=== PATIENT | female | born 1985 | race Caucasian/White ===

== ENCOUNTER 2018-06-08 08:00 | Outpatient (CLI) | payer MEDICAID ==
[2018-06-08 18:58] LABS: BASOPHILS % (AUTO) 0.5 %; EOSINOPHILS # (AUTO) 0.2 10^3/uL (0.0-0.7); EOSINOPHILS % (AUTO) 2.3 %; HGB - HEMOGLOBIN 14.8 g/dL (12.0-16.0); LYMPHOCYTES # (AUTO) 2.3 10^3/uL (1.5-3.5); LYMPHOCYTES % (AUTO) 31.8 %; MEAN CORPUSCULAR HEMOGLOBIN 33.7 pg (27.0-31.0); MEAN CORPUSCULAR HGB CONC 35.4 g/dL (32.0-36.0); MEAN CORPUSCULAR VOLUME 95.2 fL (81.0-99.0); MEAN PLATELET VOLUME 7.5 fL (7.9-10.8); MONOCYTES # (AUTO) 0.4 10^3/uL (0.0-1.0); MONOCYTES % (AUTO) 5.7 %; NEUTROPHILS # (AUTO) 4.4 10^3/uL (1.5-6.6); NEUTROPHILS % (AUTO) 59.7 %; PLT - PLATELET COUNT 216 10^3/uL (130-450); RED BLOOD COUNT 4.39 10^6/uL (4.20-5.40); WHITE BLOOD COUNT 7.3 x10^3/uL (4.8-10.8)
[2018-06-08 19:09] LABS: ALBUMIN 4.1 g/dL (3.2-5.5); ALBUMIN/GLOBULIN RATIO 1.5 (1.0-2.2); BILIRUBIN,TOTAL 0.6 mg/dL (0.2-1.0); CALCIUM 9.1 mg/dL (8.5-10.3); CREATININE 0.6 mg/dL (0.4-1.0); TOTAL PROTEIN 6.9 g/dL (6.7-8.2)
[2018-06-09 08:37] LABS: HEPATITIS B SURFACE ANTIGEN NON-REACTIVE (NON-REACTIVE)
[2018-06-09 11:37] LABS: HIV AG/AB 4TH GEN NON-REACTIVE (NON-REACTIVE)
[2018-06-09 13:12] LABS: HEPATITIS C ANTIBODY NON-REACTIVE (NON-REACTIVE)
== END 2018-06-08 08:01 ==
LOC: LAB.N 08:00
PROVIDERS: ATTEND Physician Assistant Medical
DX: Z00.00 Encounter for general adult medical examination without abnormal findings (principal); F31.9 Bipolar disorder, unspecified; Z72.0 Tobacco use; G47.00 Insomnia, unspecified; F15.21 Other stimulant dependence, in remission; F41.8 Other specified anxiety disorders
CPT/HCPCS: 36415; 80053; 81599; 84443; 85025; 86317; 86704; 86803; 87340; 87389

== ENCOUNTER 2018-07-29 13:14 | Outpatient (CLI) | payer MEDICAID ==
[2018-07-29 19:30] LABS: BASOPHILS # (AUTO) 0.1 10^3/uL (0.0-0.1); BASOPHILS % (AUTO) 0.7 %; EOSINOPHILS # (AUTO) 0.1 10^3/uL (0.0-0.7); EOSINOPHILS % (AUTO) 1.4 %; HGB - HEMOGLOBIN 14.7 g/dL (12.0-16.0); LYMPHOCYTES # (AUTO) 2.1 10^3/uL (1.5-3.5); LYMPHOCYTES % (AUTO) 28.4 %; MEAN CORPUSCULAR HEMOGLOBIN 33.1 pg (27.0-31.0); MEAN CORPUSCULAR HGB CONC 34.6 g/dL (32.0-36.0); MEAN CORPUSCULAR VOLUME 95.7 fL (81.0-99.0); MEAN PLATELET VOLUME 7.6 fL (7.9-10.8); MONOCYTES # (AUTO) 0.4 10^3/uL (0.0-1.0); MONOCYTES % (AUTO) 5.2 %; NEUTROPHILS # (AUTO) 4.7 10^3/uL (1.5-6.6); NEUTROPHILS % (AUTO) 64.3 %; PLT - PLATELET COUNT 204 10^3/uL (130-450); RED BLOOD COUNT 4.43 10^6/uL (4.20-5.40); RED CELL DISTRIBUTION WIDTH 12.4 % (12.0-15.0); WHITE BLOOD COUNT 7.3 x10^3/uL (4.8-10.8)
[2018-07-29 19:31] LABS: CALCIUM 8.9 mg/dL (8.5-10.3); CREATININE 0.9 mg/dL (0.4-1.0)
== END 2018-07-29 13:15 | disposition home or self-care (01) ==
LOC: LAB.N 13:14
PROVIDERS: ATTEND Physician Assistant Medical
DX: F31.9 Bipolar disorder, unspecified (principal); F41.8 Other specified anxiety disorders; Z32.00 Encounter for pregnancy test, result unknown; Z09 Encounter for follow-up examination after completed treatment for conditions other than malignant neoplasm
CPT/HCPCS: 36415; 80048; 84702; 84703; 85025

== ENCOUNTER 2019-04-29 08:00 | Outpatient (CLI) | payer MEDICAID ==
[2019-04-29 17:49] LABS: MUDS CUTOFF CONCENTRATIONS CUTOFF CONC BELOW:
[2019-04-29 18:34] LABS: BILIRUBIN,URINE NEGATIVE (NEGATIVE); GLUCOSE, URINE (UA) NEGATIVE (NEGATIVE); KETONES,URINE (UA) NEGATIVE (NEGATIVE); LEUKOCYTE ESTERASE, URINE NEGATIVE (NEGATIVE); NITRITE,URINE NEGATIVE (NEGATIVE); OCCULT BLOOD,URINE NEGATIVE (NEGATIVE); PH,URINE 6.5 PH (5.0-7.5); PROTEIN,URINE NEGATIVE (NEGATIVE); UROBILINOGEN,URINE 1 (NORMAL) E.U./dL (NORMAL)
[2019-04-29 18:52] LABS: BACTERIA,URINE None Seen /HPF (None Seen); CLARITY,URINE CLEAR (CLEAR); RBC,URINE 0-5 /HPF (0-5); SQUAMOUS EPITHELIAL CELL,UR FEW Squamous (<= Few)
[2019-04-29 19:39] LABS: AMPHETAMINE SCREEN,URINE NEGATIVE (NEGATIVE); BENZODIAZEPINES SCREEN, URINE NEGATIVE (NEGATIVE); COCAINE SCREEN URINE NEGATIVE (NEGATIVE); METHADONE SCREEN, URINE NEGATIVE (NEGATIVE); METHAMPHETAMINES SCREEN, URINE NEGATIVE (NEGATIVE); OPIATE SCREEN, URINE NEGATIVE (NEGATIVE); OXYCODONE SCREEN, URINE NEGATIVE (NEGATIVE); PROPOXYPHENE SCREEN, URINE NEGATIVE (NEGATIVE); TRICYCLIC ANTIDEPRESSANT,URINE NEGATIVE (NEGATIVE)
[2019-04-29 22:46] LABS: TRICHOMONAS VAGINALIS DNA NEGATIVE (NEGATIVE)
== END 2019-04-29 23:59 | disposition home or self-care (01) ==
LOC: LAB.R 08:00
PROVIDERS: ATTEND Obstetrics & Gynecology
DX: O09.73 Supervision of high risk pregnancy due to social problems, third trimester (principal); Z36.89 Encounter for other specified antenatal screening; F31.9 Bipolar disorder, unspecified; F15.10 Other stimulant abuse, uncomplicated; Z72.0 Tobacco use
CPT/HCPCS: 80306; 81001; 87086; 87491; 87591; 87661; 87797

== ENCOUNTER 2019-04-29 15:58 | Outpatient (CLI) | payer MEDICAID ==
[2019-04-29 17:48] LABS: ALBUMIN 2.3 g/dL (3.2-5.5); ALBUMIN/GLOBULIN RATIO 0.5 (1.0-2.2); BILIRUBIN,TOTAL 0.4 mg/dL (0.2-1.0); CALCIUM 8.6 mg/dL (8.5-10.3); CREATININE 0.7 mg/dL (0.4-1.0); TOTAL PROTEIN 7.1 g/dL (6.7-8.2)
[2019-04-29 17:51] LABS: BASOPHILS % (AUTO) 0.2 %; EOSINOPHILS % (AUTO) 0.2 %; HGB - HEMOGLOBIN 10.1 g/dL (12.0-16.0); LYMPHOCYTES # (AUTO) 2.2 10^3/uL (1.5-3.5); MEAN CORPUSCULAR HEMOGLOBIN 33.7 pg (27.0-31.0); MEAN CORPUSCULAR HGB CONC 33.4 g/dL (32.0-36.0); MEAN CORPUSCULAR VOLUME 100.7 fL (81.0-99.0); MEAN PLATELET VOLUME 8.1 fL (7.9-10.8); MONOCYTES # (AUTO) 0.5 10^3/uL (0.0-1.0); MONOCYTES % (AUTO) 4.1 %; NEUTROPHILS % (AUTO) 74.2 %; PLT - PLATELET COUNT 340 10^3/uL (130-450); WHITE BLOOD COUNT 12.1 x10^3/uL (4.8-10.8)
[2019-04-30 11:37] LABS: HIV AG/AB 4TH GEN NON-REACTIVE (NON-REACTIVE)
[2019-04-30 12:41] LABS: HEPATITIS B SURFACE ANTIGEN NON-REACTIVE (NON-REACTIVE); HEPATITIS C ANTIBODY NON-REACTIVE (NON-REACTIVE)
== END 2019-04-29 15:59 | disposition home or self-care (01) ==
LOC: LAB 15:58
PROVIDERS: ATTEND Obstetrics & Gynecology
DX: Z36.89 Encounter for other specified antenatal screening (principal); O09.73 Supervision of high risk pregnancy due to social problems, third trimester; F15.10 Other stimulant abuse, uncomplicated; Z32.00 Encounter for pregnancy test, result unknown; F31.9 Bipolar disorder, unspecified; Z72.0 Tobacco use
CPT/HCPCS: 36415; 80053; 81599; 82950; 85025; 85027; 86762; 86803; 86850; 86900; 86901; 87340; 87389

== ENCOUNTER 2019-05-02 17:16 | Outpatient (CLI) | payer MEDICAID ==
[2019-05-02 19:06] LABS: RUPTURE OF MEMBRANES PLUS NEGATIVE (NEGATIVE)
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
[2019-05-02 20:05] VITALS: BP 123/75
== END 2019-05-02 19:50 | disposition home or self-care (01) ==
LOC: WFO 17:16 → FBP 17:45 → WFO 19:50
PROVIDERS: ATTEND Obstetrics & Gynecology
DX: O99.89 Other specified diseases and conditions complicating pregnancy, childbirth and the puerperium (principal); R10.9 Unspecified abdominal pain; Z3A.37 37 weeks gestation of pregnancy
CPT/HCPCS: 84112; 99213

== ENCOUNTER 2019-06-02 14:44 | Outpatient (CLI) | payer MEDICAID, OTHER ==
[2019-06-02 21:23] LABS: TRICHOMONAS VAGINALIS DNA NEGATIVE (NEGATIVE)
== END 2019-06-02 23:59 | disposition home or self-care (01) ==
LOC: LAB.R 14:44
PROVIDERS: ATTEND Obstetrics & Gynecology
DX: Z11.3 Encounter for screening for infections with a predominantly sexual mode of transmission (principal)
CPT/HCPCS: 87491; 87591; 87661

== ENCOUNTER 2019-06-02 19:01 | Emergency (ER) | payer OTHER, MEDICAID ==
[2019-06-02 19:17] VITALS: BP 124/83
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
[2019-06-02] MEDS ORDERED: NAPROXEN 250 MG TABLET PO STA (21:01)
[2019-06-02] MEDS ORDERED: BACLOFEN 10 MG TABLET PO STA (21:01)
[2019-06-02] MEDS ORDERED: ACETAMINOPHEN 325 MG TABLET PO STA (21:01)
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
== END 2019-06-02 22:05 | disposition home or self-care (01) ==
LOC: ED 19:01
DX: S16.1XXA Strain of muscle, fascia and tendon at neck level, initial encounter (principal); V43.52XA Car driver injured in collision with other type car in traffic accident, initial encounter; Y92.410 Unspecified street and highway as the place of occurrence of the external cause; F17.200 Nicotine dependence, unspecified, uncomplicated
CPT/HCPCS: 72040; 99283; 99284; A9270

== ENCOUNTER 2019-06-18 20:17 | Emergency (ER) | payer MEDICAID, OTHER ==
[2019-06-18 20:27] VITALS: BP 127/88
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
== END 2019-06-18 22:20 | disposition home or self-care (01) ==
LOC: ED 20:17
DX: F07.81 Postconcussional syndrome (principal); G44.309 Post-traumatic headache, unspecified, not intractable; F17.200 Nicotine dependence, unspecified, uncomplicated
CPT/HCPCS: 99282

== ENCOUNTER 2019-06-23 16:32 | Emergency (ER) | payer MEDICAID ==
[2019-06-23 16:41] VITALS: BP 125/89
--- NOTE | 2019-06-23 17:02 | ED Physician Documentation ---
History of Present Illness - Stated complaint Stated Complaint: MED REFILL - Chief complaint Chief Complaint: General - History obtained from History obtained from: Patient - History of Present Illness Timing: Other (This is a 33-year-old woman with history of anxiety, depression, PTSD, and methamphetamine use. She is feeling down because her CPS has her baby. She not breast-feeding. She like to get on back on her psychiatric medications. She does not know what they are.) - Additonal information Additional information: She denies suicidal or homicidal ideations. Review of Systems Constitutional: reports: Reviewed and negative Ears: reports: Reviewed and negative Nose: reports: Reviewed and negative Throat: reports: Reviewed and negative PD PAST MEDICAL HISTORY - Past Medical History Cardiovascular: None Respiratory: None Neuro: Migraines Endocrine/Autoimmune: None GI: GERD : None Musculoskeletal: None - Past Surgical History Past Surgical History: No - Present Medications Home Medications: Ambulatory Orders Medication Instructions Recorded Confirmed Baclofen [Lioresal] 10 mg PO TID PRN #15 tablet 06/02/19 Hydrocodone/Acetaminophen [[place] 1 each PO Q6H PRN #15 tablet 06/02/19 5-325 Tablet] Naproxen 375 mg PO BID #20 tablet 06/02/19 hydrOXYzine HCl [Hydroxyzine HCl] 25 mg PO BID 06/02/19 06/02/19 Propranolol HCl 20 mg PO TID #60 tablet 06/23/19 busPIRone [Buspar] 10 mg PO TID #60 tablet 06/23/19 risperiDONE [Risperdal] 3 mg PO TID #120 tablet 06/23/19 - Allergies Allergies/Adverse Reactions: Allergies Allergy/AdvReac Type Severity Reaction Status Date / Time No Known Drug Allergies Allergy Verified 06/18/19 20:27 - Social History Does the pt smoke?: Yes Smoking Status: Current every day smoker Does the pt drink ETOH?: No Does the pt have substance abuse?: No - Immunizations Immunizations are current?: Yes PD ED PE NORMAL - Vitals Vital signs reviewed: Yes - General General: Alert and oriented X 3, No acute distress - HEENT HEENT: PERRL, EOMI - Neck Neck: Supple, no meningeal sign, No bony TTP - Neuro Neuro: Alert and oriented X 3, paraoptometric 2-12 intact, No motor deficit, No sensory deficit, Normal speech Results - Vitals Vitals: Vital Signs - 24 hr 06/23/19 16:37 Temperature 36.2 C L Heart Rate 96 Respiratory 18 Rate Blood Pressure 125/89 H O2 Saturation 99 Oxygen O2 Source Room air PD MEDICAL DECISION MAKING - ED course ED course: We were able to get records from [facility] in [place] and her medications were confirmed. Departure - Departure Disposition: 01 Home, Self Care Clinical Impression: PTSD (post-traumatic stress disorder) Condition: Good Record reviewed to determine appropriate education?: Yes Instructions: ED Stress React Prescriptions: busPIRone [Buspar] 10 mg PO TID #60 tablet Propranolol HCl 20 mg PO TID #60 tablet risperiDONE [Risperdal] 3 mg PO TID #120 tablet Comments: Follow-up with [facility] as scheduled for ongoing care and refills. Return for new or worsening symptoms.
== END 2019-06-23 17:55 | disposition home or self-care (01) ==
LOC: ED 16:32
DX: F43.10 Post-traumatic stress disorder, unspecified (principal); Z76.0 Encounter for issue of repeat prescription; F17.200 Nicotine dependence, unspecified, uncomplicated
CPT/HCPCS: 99283

== ENCOUNTER 2019-06-28 17:48 | Emergency (ER) | payer MEDICAID ==
--- NOTE | 2019-06-28 18:14 | ED Physician Documentation ---
History of Present Illness - Stated complaint Stated Complaint: PORT BLEEDING - Chief complaint Chief Complaint: General - History obtained from History obtained from: Patient - History of Present Illness Timing: Other (She gave on May 04, almost 2 months ago. She is had waxing and waning bleeding, going through a few pads a day. Despite having a IUD placed. There is no acute issue today.) Review of Systems Constitutional: denies: Fever, Chills Respiratory: denies: Dyspnea, Cough GI: denies: Abdominal Pain, Nausea, Vomiting PD PAST MEDICAL HISTORY - Past Medical History Cardiovascular: None Respiratory: None Neuro: Migraines Endocrine/Autoimmune: None GI: GERD : None Musculoskeletal: None - Past Surgical History Past Surgical History: No - Present Medications Home Medications: Ambulatory Orders Medication Instructions Recorded Confirmed Baclofen [Lioresal] 10 mg PO TID PRN #15 tablet 06/02/19 Hydrocodone/Acetaminophen [[place] 1 each PO Q6H PRN #15 tablet 06/02/19 5-325 Tablet] Naproxen 375 mg PO BID #20 tablet 06/02/19 hydrOXYzine HCl [Hydroxyzine HCl] 25 mg PO BID 06/02/19 06/02/19 Propranolol HCl 20 mg PO TID #60 tablet 06/23/19 busPIRone [Buspar] 10 mg PO TID #60 tablet 06/23/19 risperiDONE [Risperdal] 3 mg PO TID #120 tablet 06/23/19 Medroxyprogesterone Acetate 10 mg PO DAILY #30 tablet 06/28/19 [Provera] - Allergies Allergies/Adverse Reactions: Allergies Allergy/AdvReac Type Severity Reaction Status Date / Time acetaminophen [From [place]] Allergy Rash Verified 06/28/19 17:55 hydrocodone [From [place]] Allergy Rash Verified 06/28/19 17:55 - Social History Does the pt smoke?: Yes Smoking Status: Current every day smoker Does the pt drink ETOH?: No Does the pt have substance abuse?: No - Immunizations Immunizations are current?: Yes PD ED PE NORMAL - Vitals Vital signs reviewed: Yes - General General: Alert and oriented X 3, No acute distress, Well developed/nourished - Abdomen Abdomen: Soft, Non tender - Back Back: No CVA TTP, No spinal TTP - Derm Derm: Normal color, Warm and dry - Extremities Extremities: No edema, No calf tenderness / cord - Neuro Neuro: Alert and oriented X 3, Normal speech Results - Vitals Vitals: Vital Signs - 24 hr 06/28/19 06/28/19 06/28/19 17:52 19:12 20:24 Temperature 35.9 C L Heart Rate 100 86 Respiratory 19 16 16 Rate Blood Pressure 154/87 H 115/88 H O2 Saturation 99 100 Oxygen O2 Source Room air - Labs Labs: Laboratory Tests 06/28/19 06/28/19 06/28/19 18:12 18:12 18:42 WBC 7.6 RBC 4.08 L Hgb 13.5 Hct 39.2 MCV 96.1 MCH 33.1 H MCHC 34.4 RDW 12.2 Plt Count 232 MPV 8.6 Neut # (Auto) 4.3 Lymph # (Auto) 2.6 [place] # (Auto) 0.4 Eos # (Auto) 0.2 Baso # (Auto) 0.0 Absolute Nucleated RBC 0.00 Nucleated RBC % 0.0 Sodium 139 Potassium 4.0 Chloride 105 Carbon Dioxide 23 Anion Gap 11.0 BUN 23 H Creatinine 0.6 Estimated GFR (MDRD) 117 Glucose 94 Calcium 9.4 Urine Color Urine Clarity Urine pH Ur Specific [place] Urine Protein Urine Glucose (UA) Urine Ketones Urine Occult Blood Urine Nitrite Urine Bilirubin Urine Urobilinogen Ur Leukocyte Esterase Ur Microscopic Review Urine Culture Comments Urine HCG, Qual Urine Opiates Screen NEGATIVE Ur Oxycodone Screen NEGATIVE Urine Methadone Screen NEGATIVE Ur Propoxyphene Screen NEGATIVE Ur Barbiturates Screen NEGATIVE Ur Tricyclics Screen NEGATIVE Ur Phencyclidine Scrn NEGATIVE Ur Amphetamine Screen NEGATIVE U Methamphetamines Scrn NEGATIVE U Benzodiazepines Scrn NEGATIVE Urine Cocaine Screen NEGATIVE U Cannabinoids Screen NEGATIVE 06/28/19 18:42 WBC RBC Hgb Hct MCV MCH MCHC RDW Plt Count MPV Neut # (Auto) Lymph # (Auto) [place] # (Auto) Eos # (Auto) Baso # (Auto) Absolute Nucleated RBC Nucleated RBC % Sodium Potassium Chloride Carbon Dioxide Anion Gap BUN Creatinine Estimated GFR (MDRD) Glucose Calcium Urine Color YELLOW Urine Clarity CLEAR Urine pH 6.0 Ur Specific [place] 1.020 Urine Protein NEGATIVE Urine Glucose (UA) NEGATIVE Urine Ketones NEGATIVE Urine Occult Blood NEGATIVE Urine Nitrite NEGATIVE Urine Bilirubin NEGATIVE Urine Urobilinogen 0.2 (NORMAL) Ur Leukocyte Esterase NEGATIVE Ur Microscopic Review NOT INDICATED Urine Culture Comments NOT INDICATED Urine HCG, Qual NEGATIVE Urine Opiates Screen Ur Oxycodone Screen Urine Methadone Screen Ur Propoxyphene Screen Ur Barbiturates Screen Ur Tricyclics Screen Ur Phencyclidine Scrn Ur Amphetamine Screen U Methamphetamines Scrn U Benzodiazepines Scrn Urine Cocaine Screen U Cannabinoids Screen PD MEDICAL DECISION MAKING - ED course ED course: This is a G2, P2 2 months presents with persistent vaginal bleeding but with normal hemodynamics and H&H after IUD placement . Spoke with Dr. Connor, on-call OB who recommended a dose of Provera here noting that she is a smoker. Also an ultrasound to make sure the IUD is appropriately positioned. If it is, ongoing Provera pending follow-up. 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 Return for new or worsening symptoms.
[2019-06-28 18:16] LABS: BASOPHILS % (AUTO) 0.4 %; EOSINOPHILS # (AUTO) 0.2 10^3/uL (0.0-0.7); EOSINOPHILS % (AUTO) 2.4 %; HGB - HEMOGLOBIN 13.5 g/dL (12.0-16.0); LYMPHOCYTES # (AUTO) 2.6 10^3/uL (1.5-3.5); LYMPHOCYTES % (AUTO) 34.7 %; MEAN CORPUSCULAR HEMOGLOBIN 33.1 pg (27.0-31.0); MEAN CORPUSCULAR HGB CONC 34.4 g/dL (32.0-36.0); MEAN CORPUSCULAR VOLUME 96.1 fL (81.0-99.0); MEAN PLATELET VOLUME 8.6 fL (7.9-10.8); MONOCYTES # (AUTO) 0.4 10^3/uL (0.0-1.0); MONOCYTES % (AUTO) 5.7 %; NEUTROPHILS # (AUTO) 4.3 10^3/uL (1.5-6.6); NEUTROPHILS % (AUTO) 56.3 %; PLT - PLATELET COUNT 232 10^3/uL (130-450); RED BLOOD COUNT 4.08 10^6/uL (4.20-5.40); RED CELL DISTRIBUTION WIDTH 12.2 % (12.0-15.0); WHITE BLOOD COUNT 7.6 x10^3/uL (4.8-10.8)
[2019-06-28 18:26] LABS: CALCIUM 9.4 mg/dL (8.5-10.3); CREATININE 0.6 mg/dL (0.4-1.0)
[2019-06-28 18:44] LABS: MUDS CUTOFF CONCENTRATIONS CUTOFF CONC BELOW:
[2019-06-28 18:48] LABS: BILIRUBIN,URINE NEGATIVE (NEGATIVE); GLUCOSE, URINE (UA) NEGATIVE (NEGATIVE); KETONES,URINE (UA) NEGATIVE (NEGATIVE); LEUKOCYTE ESTERASE, URINE NEGATIVE (NEGATIVE); NITRITE,URINE NEGATIVE (NEGATIVE); OCCULT BLOOD,URINE NEGATIVE (NEGATIVE); PROTEIN,URINE NEGATIVE (NEGATIVE); UROBILINOGEN,URINE 0.2 (NORMAL) E.U./dL (NORMAL)
[2019-06-28 18:51] LABS: CLARITY,URINE CLEAR (CLEAR); HCG UR QUAL NEGATIVE
[2019-06-28 19:12] LABS: AMPHETAMINE SCREEN,URINE NEGATIVE (NEGATIVE); BENZODIAZEPINES SCREEN, URINE NEGATIVE (NEGATIVE); COCAINE SCREEN URINE NEGATIVE (NEGATIVE); METHADONE SCREEN, URINE NEGATIVE (NEGATIVE); METHAMPHETAMINES SCREEN, URINE NEGATIVE (NEGATIVE); OPIATE SCREEN, URINE NEGATIVE (NEGATIVE); OXYCODONE SCREEN, URINE NEGATIVE (NEGATIVE); PROPOXYPHENE SCREEN, URINE NEGATIVE (NEGATIVE); TRICYCLIC ANTIDEPRESSANT,URINE NEGATIVE (NEGATIVE)
[2019-06-28 20:25] VITALS: BP 115/88
--- NOTE | 2019-06-28 21:09 | Ultrasound Report ---
Reason: eval IUD d/t bleeding Procedure Date: 06/28/2019 Accession Number: [id number] / [id number] Procedure: US - Pelvic Limited or F/U CPT Code: FULL RESULT: EXAM: PELVIC ULTRASOUND LIMITED EXAM DATE: 06/28/2019 08:28 PM. CLINICAL HISTORY: Eval IUD d/t bleeding. COMPARISON: None. TECHNIQUE: Realtime transabdominal pelvic scan performed to identify the uterus and adnexa and as an overview of other pelvic structures, with static image documentation. FINDINGS: Uterus: 9.8 x 4.0 x 7.7 cm, volume 156 cc. Anteverted position. Normal overall size and echotexture. Masses: None. Endometrium: 7 mm. Normal. Cervix: Unremarkable. Free Fluid: None. Other: None. IMPRESSION: Uterus and endometrium are within normal limits. Intrauterine device is in expected position. [facility]
== END 2019-06-28 21:33 | disposition home or self-care (01) ==
LOC: ED 17:48
DX: O72.2 Delayed and secondary postpartum hemorrhage (principal); Z97.5 Presence of (intrauterine) contraceptive device; F17.200 Nicotine dependence, unspecified, uncomplicated
CPT/HCPCS: 36415; 76857; 80048; 80306; 81003; 81025; 85025; 99283; A9270; 81001; 87086

== ENCOUNTER 2019-07-08 15:32 | Emergency (ER) | payer MEDICAID ==
[2019-07-08] MEDS ORDERED: CARBAMIDE PEROXIDE 6.5% OTIC DROPS LEFTEAR STA (15:47)
[2019-07-08 15:48] VITALS: BP 136/84
--- NOTE | 2019-07-08 16:10 | ED Physician Documentation ---
PD HPI HEENT - Stated complaint Stated Complaint: L EAR PX - Chief complaint Chief Complaint: Heent - History obtained from History obtained from: Patient - History of Present Illness Timing - onset: How many days ago (a few) Timing - details: Still present Location: Left ear - Additional information Additional information: The patient is a 33-year-old female who complains of left earache that started a few days ago and has been persistent. She reports decreased hearing ability. She states she recently had a tooth infection, but her toothache has improved. She denies fever, cough, or difficulty swallowing. In addition she states she is out of her psychiatric medications. 2 weeks ago she was seen here and was prescribed Risperdal, BuSpar, and propranolol to treat her anxiety disorder, depression, and PTSD. She has not gotten a new prescription from her primary physician yet. Review of Systems Constitutional: denies: Fever Ears: reports: Ear pain (Left ear.). denies: Tinnitus/ringing Nose: denies: Congestion Throat: denies: Sore throat Cardiac: denies: Chest pain / pressure Respiratory: denies: Dyspnea, Cough GI: denies: Abdominal Pain, Nausea, Vomiting : denies: Dysuria Skin: denies: Rash Musculoskeletal: denies: Neck pain Neurologic: denies: Headache PD PAST MEDICAL HISTORY - Past Medical History Past Medical History: Yes Cardiovascular: None Respiratory: None Neuro: Migraines Endocrine/Autoimmune: None GI: GERD : None Psych: Depression, Anxiety, Post traumatic stress disorder Musculoskeletal: None - Past Surgical History Past Surgical History: No - Present Medications Home Medications: Ambulatory Orders Medication Instructions Recorded Confirmed Baclofen [Lioresal] 10 mg PO TID PRN #15 tablet 06/02/19 Hydrocodone/Acetaminophen [[place] 1 each PO Q6H PRN #15 tablet 06/02/19 5-325 Tablet] Naproxen 375 mg PO BID #20 tablet 06/02/19 hydrOXYzine HCl [Hydroxyzine HCl] 25 mg PO BID 06/02/19 06/02/19 Propranolol HCl 20 mg PO TID #60 tablet 06/23/19 busPIRone [Buspar] 10 mg PO TID #60 tablet 06/23/19 risperiDONE [Risperdal] 3 mg PO TID #120 tablet 06/23/19 Medroxyprogesterone Acetate 10 mg PO DAILY #30 tablet 06/28/19 [Provera] Amoxicillin 500 mg PO TID #21 capsule 07/08/19 Propranolol [Inderal] 20 mg PO TID #30 tablet 07/08/19 Risperidone [Risperidone Odt] 3 mg PO TID #15 tab.rapdis 07/08/19 busPIRone [Buspar] 10 mg PO TID #30 tablet 07/08/19 - Allergies Allergies/Adverse Reactions: Allergies Allergy/AdvReac Type Severity Reaction Status Date / Time acetaminophen [From [place]] Allergy Rash Verified 07/08/19 15:48 hydrocodone [From [place]] Allergy Rash Verified 07/08/19 15:48 - Social History Does the pt smoke?: Yes Smoking Status: Current every day smoker Does the pt drink ETOH?: No Does the pt have substance abuse?: No - Immunizations Immunizations are current?: Yes - POLST Patient has POLST: No PD ED PE NORMAL - Vitals Vital signs reviewed: Yes (normal) - General General: Alert and oriented X 3, Well developed/nourished - HEENT HEENT: Atraumatic, EOMI, Pharynx benign, Other (Left tympanic membrane is obscured by cerumen. Right tympanic membrane is clear.) - Neck Neck: Supple, no meningeal sign, No adenopathy - Cardiac Cardiac: RRR - Respiratory Respiratory: No respiratory distress, Clear bilaterally - Abdomen Abdomen: Soft, Non tender - Back Back: No CVA TTP - Derm Derm: No rash - Extremities Extremities: No edema, No calf tenderness / cord - Neuro Neuro: Alert and oriented X 3, No motor deficit, Normal speech Results - Vitals Vitals: Vital Signs - 24 hr 07/08/19 15:47 Temperature 36.8 C Heart Rate 84 Respiratory 14 Rate Blood Pressure 136/84 H O2 Saturation 96 Oxygen O2 Source Room air Procedures - FB removal FB location: Ear (cerumen) Removal method: Irrigated/flushed, [place] FB removal aftercare: No complications, Patient tolerated well, Removed successfully PD MEDICAL DECISION MAKING - ED course Complexity details: reviewed old records, re-evaluated patient, considered di fferential, d/w patient ED course: The patient's presentation is significant for a cerumen disimpaction from the left ear canal, and left otitis media. The cerumen impaction was removed after instillation of DeBrox into the ear canal, with subsequent irrigation using normal saline, followed by removal of remaining wax using an ear curette. The patient's hearing ability improved after the above treatment. Inspection of her tympanic membrane reveals erythema and bulging with loss of landmarks, consistent with otitis media. She is being discharged with prescription for amoxicillin. In addition I prescribed 5 the course of her psychiatric medications including Risperdal, BuSpar, and propranolol. I discussed with her the expected course of illness, antibiotic treatment and outpatient follow-up, as well as potentially worrisome signs or symptoms that should prompt reevaluation in the emergency department. Departure - Departure Disposition: Home, Self Care Clinical Impression: Impacted cerumen of left ear, PTSD (post-traumatic stress disorder) Left otitis media Qualifiers: Otitis media type: serous Chronicity: acute Recurrence: not specified as recurrent Qualified Code(s): H65.02 - Acute serous otitis media, left ear Condition: Stable Instructions: ED Otitis Media Acute Adult Follow-Up: Clint Nieto PA-C [Primary Care Provider] - Prescriptions: Amoxicillin 500 mg PO TID #21 capsule busPIRone [Buspar] 10 mg PO TID #30 tablet Propranolol [Inderal] 20 mg PO TID #30 tablet Risperidone [Risperidone Odt] 3 mg PO TID #15 tab.[email or web address] Comments: Take amoxicillin 3 times daily as prescribed. You can use Tylenol or ibuprofen if needed for discomfort. Follow-up with your primary physician on Thursday as planned. Return to the emergency department if you develop increasing pain, fever with shaking chills, or otherwise worsening symptoms. Discharge Date/Time: 07/08/19 16:52
== END 2019-07-08 16:52 | disposition home or self-care (01) ==
LOC: ED 15:32
DX: H61.22 Impacted cerumen, left ear (principal); H65.02 Acute serous otitis media, left ear; F43.10 Post-traumatic stress disorder, unspecified; F17.200 Nicotine dependence, unspecified, uncomplicated; Z76.0 Encounter for issue of repeat prescription
CPT/HCPCS: 69209; 99282; 99283

== ENCOUNTER 2019-07-12 17:39 | Emergency (ER) | payer MEDICAID ==
[2019-07-12 17:55] VITALS: BP 111/73
[2019-07-12] MEDS ORDERED: hydrOXYzine PAMOATE 25 MG CAPSULE PO STA (18:03)
--- NOTE | 2019-07-12 18:04 | ED Physician Documentation ---
History of Present Illness - Stated complaint Stated Complaint: MED REFILL/ANXIETY - Chief complaint Chief Complaint: General - History obtained from History obtained from: Patient - History of Present Illness Timing: Today (33-year-old woman chronic anxiety presents after a panic attack this morning. She is all over that, but she needs a refill on her hydroxyzine which she was taking for anxiety. There was some sort of mixup between her doctor in the pharmacy and could not get it at the pharmacy. She has no other acute complaints. Denies suicidal or homicidal ideations. She is not breast-feeding.) Review of Systems Constitutional: reports: Reviewed and negative Cardiac: reports: Reviewed and negative Respiratory: reports: Reviewed and negative PD PAST MEDICAL HISTORY - Past Medical History Past Medical History: Yes Cardiovascular: None Respiratory: None Neuro: Migraines Endocrine/Autoimmune: None GI: GERD : None Psych: Depression, Anxiety, Post traumatic stress disorder Musculoskeletal: None - Past Surgical History Past Surgical History: No - Present Medications Home Medications: Ambulatory Orders Medication Instructions Recorded Confirmed Baclofen [Lioresal] 10 mg PO TID PRN #15 tablet 06/02/19 Hydrocodone/Acetaminophen [[place] 1 each PO Q6H PRN #15 tablet 06/02/19 5-325 Tablet] Naproxen 375 mg PO BID #20 tablet 06/02/19 hydrOXYzine HCl [Hydroxyzine HCl] 25 mg PO BID 06/02/19 06/02/19 Propranolol HCl 20 mg PO TID #60 tablet 06/23/19 busPIRone [Buspar] 10 mg PO TID #60 tablet 06/23/19 risperiDONE [Risperdal] 3 mg PO TID #120 tablet 06/23/19 Medroxyprogesterone Acetate 10 mg PO DAILY #30 tablet 06/28/19 [Provera] Amoxicillin 500 mg PO TID #21 capsule 07/08/19 Propranolol [Inderal] 20 mg PO TID #30 tablet 07/08/19 Risperidone [Risperidone Odt] 3 mg PO TID #15 tab.rapdis 07/08/19 busPIRone [Buspar] 10 mg PO TID #30 tablet 07/08/19 hydrOXYzine pamoate [Hydroxyzine 1 - 2 tab PO Q6H PRN #20 capsule 07/12/19 Pamoate] - Allergies Allergies/Adverse Reactions: Allergies Allergy/AdvReac Type Severity Reaction Status Date / Time acetaminophen [From [place]] Allergy Rash Verified 07/12/19 17:49 hydrocodone [From [place]] Allergy Rash Verified 07/12/19 17:49 - Social History Does the pt smoke?: Yes Smoking Status: Current every day smoker Does the pt drink ETOH?: No Does the pt have substance abuse?: No - Immunizations Immunizations are current?: Yes - POLST Patient has POLST: No PD ED PE NORMAL - Vitals Vital signs reviewed: Yes - General General: Alert and oriented X 3, No acute distress - Derm Derm: Normal color, Warm and dry, No rash - Neuro Neuro: Alert and oriented X 3, Normal speech - Psych Psych: Normal mood, Normal affect Results - Vitals Vitals: Vital Signs - 24 hr 07/12/19 17:49 Temperature 36.5 C Heart Rate 90 Respiratory 16 Rate Blood Pressure 111/73 O2 Saturation 100 Oxygen O2 Source Room air Departure - Departure Disposition: 01 Home, Self Care Clinical Impression: PTSD (post-traumatic stress disorder), Medication refill Record reviewed to determine appropriate education?: Yes Instructions: ED Stress React Prescriptions: hydrOXYzine pamoate [Hydroxyzine Pamoate] 1 - 2 tab PO Q6H PRN #20 capsule PRN Reason: Anxiety Comments: Call your doctor to arrange a follow-up appointment, make the next available appointment. In the interim, return anytime if worse or if new symptoms develop.
== END 2019-07-12 18:06 | disposition home or self-care (01) ==
LOC: ED 17:39
DX: F41.9 Anxiety disorder, unspecified (principal); F43.10 Post-traumatic stress disorder, unspecified; Z76.0 Encounter for issue of repeat prescription; F17.200 Nicotine dependence, unspecified, uncomplicated
CPT/HCPCS: 99282; A9270

== ENCOUNTER 2019-07-22 16:15 | Emergency (ER) | payer MEDICAID ==
[2019-07-22 16:29] VITALS: BP 113/72
--- NOTE | 2019-07-22 16:59 | ED Physician Documentation ---
PD LAYA HEENT - Stated complaint Stated Complaint: L EAR PX - Chief complaint Chief Complaint: Heent - History obtained from History obtained from: Patient - History of Present Illness Timing - duration: Weeks (1) Timing - details: Still present Location: Left ear Similar symptoms before: Diagnosis (otitis media) Recently seen: Emergency Dept (She was seen here 2 weeks ago with similar symptoms, and was prescribed with amoxicillin of which she has completed the treatment course.) - Additional information Additional information: The patient is a 33-year-old female who complains of left earache that has been ongoing for the past week. She denies fever, headache, sore throat, or cough. She was seen here 2 weeks ago a similar symptoms and was prescribed amoxicillin. She has completed the treatment course, without improvement of her earache. Review of Systems Constitutional: denies: Fever Eyes: denies: Irritation Ears: reports: Ear pain (left ear) Nose: denies: Congestion Throat: denies: Sore throat Cardiac: denies: Chest pain / pressure Respiratory: denies: Dyspnea, Cough GI: denies: Abdominal Pain, Nausea, Vomiting : denies: Dysuria Skin: denies: Rash Musculoskeletal: denies: Neck pain Neurologic: denies: Head injury PD PAST MEDICAL HISTORY - Past Medical History Cardiovascular: None Respiratory: None Neuro: Migraines Endocrine/Autoimmune: None GI: GERD : None Psych: Depression, Anxiety, Post traumatic stress disorder Musculoskeletal: None - Past Surgical History Past Surgical History: No - Present Medications Home Medications: Ambulatory Orders Medication Instructions Recorded Confirmed Baclofen [Lioresal] 10 mg PO TID PRN #15 tablet 06/02/19 Hydrocodone/Acetaminophen [[place] 1 each PO Q6H PRN #15 tablet 06/02/19 5-325 Tablet] Naproxen 375 mg PO BID #20 tablet 06/02/19 hydrOXYzine HCl [Hydroxyzine HCl] 25 mg PO BID 06/02/19 06/02/19 Propranolol HCl 20 mg PO TID #60 tablet 06/23/19 busPIRone [Buspar] 10 mg PO TID #60 tablet 06/23/19 risperiDONE [Risperdal] 3 mg PO TID #120 tablet 06/23/19 Medroxyprogesterone Acetate 10 mg PO DAILY #30 tablet 06/28/19 [Provera] Amoxicillin 500 mg PO TID #21 capsule 07/08/19 Propranolol [Inderal] 20 mg PO TID #30 tablet 07/08/19 Risperidone [Risperidone Odt] 3 mg PO TID #15 tab.rapdis 07/08/19 busPIRone [Buspar] 10 mg PO TID #30 tablet 07/08/19 hydrOXYzine pamoate [Hydroxyzine 1 - 2 tab PO Q6H PRN #20 capsule 07/12/19 Pamoate] Sulfamethox/Trimeth 800/160 1 each PO BID #14 tablet 07/22/19 [Bactrim Ds 800/160] - Allergies Allergies/Adverse Reactions: Allergies Allergy/AdvReac Type Severity Reaction Status Date / Time acetaminophen [From [place]] Allergy Rash Verified 07/22/19 16:26 hydrocodone [From [place]] Allergy Rash Verified 07/22/19 16:26 - Social History Does the pt smoke?: Yes Smoking Status: Current every day smoker Does the pt drink ETOH?: No Does the pt have substance abuse?: No - Immunizations Immunizations are current?: Yes - POLST Patient has POLST: No PD ED PE NORMAL - Vitals Vital signs reviewed: Yes (normal) - General General: Alert and oriented X 3, Well developed/nourished - HEENT HEENT: Atraumatic, EOMI, Pharynx benign, Other (Left ear canal is full of cerumen, obscuring the tympanic membrane. After removal of the earwax with an ear loop, and erythematous tympanic membrane is reveal. She has decreased hearing ability in the left ear compared to the right. Right tympanic membrane is clear. ) - Neck Neck: Supple, no meningeal sign, No adenopathy - Cardiac Cardiac: RRR - Respiratory Respiratory: No respiratory distress, Clear bilaterally - Derm Derm: No rash - Neuro Neuro: Alert and oriented X 3, No motor deficit, Normal speech Results - Vitals Vitals: Oxygen O2 Source Room air PD MEDICAL DECISION MAKING - ED course Complexity details: reviewed old records, re-evaluated patient, considered differential, d/w patient ED course: The patient's presentation is significant for a cerumen impaction in the left ear canal, and left otitis media. Her presentation does not suggest meningitis, pharyngitis, or peritonsillar abscess. Treatment in the emergency department included removal of cerumen using ear loops. She is being discharged with prescription for Bactrim DS. I discussed with her the expected course of illness, outpatient follow-up, as well as potentially worrisome signs or symptoms that should prompt reevaluation in the emergency department. Departure - Departure Disposition: 01 Home, Self Care Clinical Impression: Impacted cerumen of left ear Left otitis media Qualifiers: Otitis media type: serous Recurrence: recurrent Condition: Stable Instructions: ED Otitis Media Acute Adult Follow-Up: Clint Nieto PA-C [Primary Care Provider] - Prescriptions: Sulfamethox/Trimeth 800/160 [Bactrim Ds 800/160] 1 each PO BID #14 tablet Comments: You can use hydrogen peroxide to help clean the ear canal. Take Bactrim twice daily as prescribed. Follow-up with your primary physician as planned. Return to the emergency department if you develop increasing pain, difficulty swallowing, increasing headache, or otherwise worsening symptoms. Discharge Date/Time: 07/22/19 17:02
== END 2019-07-22 17:02 | disposition home or self-care (01) ==
LOC: ED 16:15
DX: H61.22 Impacted cerumen, left ear (principal); H65.05 Acute serous otitis media, recurrent, left ear; F17.200 Nicotine dependence, unspecified, uncomplicated
CPT/HCPCS: 69210; 99282; 99284

== ENCOUNTER 2019-08-14 08:13 | Emergency (ER) | payer MEDICAID ==
--- NOTE | 2019-08-14 08:35 | ED Physician Documentation ---
PD HPI ABD PAIN - Stated complaint Stated Complaint: FEM - Chief complaint Chief Complaint: Abd Pain - History obtained from History obtained from: Patient - History of Present Illness Timing - onset: How many hours ago (2) Timing - duration: Hours (2) Timing - details: Abrupt onset Quality: Cramping, Aching, Pain Location: RLQ Radiation: Right flank Improved by: No: Eating Worsened by: No: Eating Associated symptoms: Nausea, Vaginal bleeding (period 3 days ago, tapering). No: Fever, Vomiting, Diarrhea, Constipation, Dysuria, Hematuria, Vaginal dc Similar symptoms before: Has not had sx before Recently seen: Clinic (IUD placed 2 months ago, with less discharge after 2 weeks.) Review of Systems Constitutional: denies: Fever, Chills Nose: denies: Rhinorrhea / runny nose, Congestion Throat: denies: Sore throat Respiratory: denies: Cough GI: reports: Nausea. denies: Vomiting, Constipation, Diarrhea : denies: Dysuria, Frequency, Discharge Neurologic: denies: Near syncope PD PAST MEDICAL HISTORY - Past Medical History Cardiovascular: None Respiratory: None Neuro: Migraines Endocrine/Autoimmune: None GI: GERD : None Psych: Depression, Anxiety, Post traumatic stress disorder Musculoskeletal: None - Past Surgical History Past Surgical History: No - Present Medications Home Medications: Ambulatory Orders Medication Instructions Recorded Confirmed busPIRone [Buspar] 10 mg PO TID #30 tablet 07/08/19 Bupropion HCl [Bupropion Xl] 300 mg PO 08/14/19 Methocarbamol [Robaxin] 500 mg PO Q6H PRN #20 tablet 08/14/19 Naltrexone HCl 50 mg PO 08/14/19 08/14/19 Naproxen 500 mg PO BID #20 tablet 08/14/19 buPROPion HCl [Bupropion HCl Sr] 100 mg PO 08/14/19 - Allergies Allergies/Adverse Reactions: Allergies Allergy/AdvReac Type Severity Reaction Status Date / Time acetaminophen [From [place]] Allergy Rash Verified 08/14/19 08:21 hydrocodone [From [place]] Allergy Rash Verified 08/14/19 08:21 - Social History Does the pt smoke?: Yes Smoking Status: Current every day smoker Does the pt drink ETOH?: No Does the pt have substance abuse?: No - Immunizations Immunizations are current?: Yes - POLST Patient has POLST: No PD ED PE NORMAL - Vitals Vital signs reviewed: Yes - General General: Alert and oriented X 3, Well developed/nourished - HEENT HEENT: Moist mucous membranes, Pharynx benign - Neck Neck: Supple, no meningeal sign, No adenopathy - Cardiac Cardiac: RRR, No murmur - Respiratory Respiratory: Clear bilaterally - Abdomen Abdomen: Normal bowel sounds, Soft, Non distended, No organomegaly, Other (tender RLQ without guarding, and also right flank to percussion. ) - Female Female : Deferred - Rectal Rectal: Deferred - Derm Derm: Normal color - Neuro Neuro: Alert and oriented X 3, No motor deficit, Normal speech Results - Vitals Vitals: Vital Signs - 24 hr 08/14/19 08/14/19 08:18 10:56 Temperature 36.7 C Heart Rate 86 80 Respiratory 20 16 Rate Blood Pressure 111/67 114/61 O2 Saturation 98 100 Oxygen O2 Source Room air - Labs Labs: Laboratory Tests 08/14/19 08:52 Urine Color YELLOW Urine Clarity CLEAR Urine pH 6.0 Ur Specific [place] 1.015 Urine Protein NEGATIVE Urine Glucose (UA) NEGATIVE Urine Ketones NEGATIVE Urine Occult Blood NEGATIVE Urine Nitrite NEGATIVE Urine Bilirubin NEGATIVE Urine Urobilinogen 0.2 (NORMAL) Ur Leukocyte Esterase NEGATIVE Ur Microscopic Review NOT INDICATED Urine Culture Comments NOT INDICATED Urine HCG, Qual NEGATIVE - Rads (name of study) KUB CT Radiology: Prelim report reviewed, See rad report PD MEDICAL DECISION MAKING - ED course Complexity details: reviewed results, considered differential (Consider renal stone, cyst, intestinal spasm. Abruptlness less likely appendix. Not tender in gallbladder area. ), d/w patient Departure - Departure Disposition: 01 Home, Self Care Clinical Impression: Right sided abdominal pain Condition: Stable Record reviewed to determine appropriate education?: Yes Instructions: ED Abdominal Pain Unkn Cause Follow-Up: Clint Nieto PA-C [Primary Care Provider] - Prescriptions: Methocarbamol [Robaxin] 500 mg PO Q6H PRN #20 tablet PRN Reason: Spasms Naproxen 500 mg PO BID #20 tablet Comments: Your urine test and CT scan are normal. It is not appendicitis. You are not passing a kidney stone. No signs of kidney infection or internal bleeding. Considerations can be muscular pain and spasm. You may have some intestinal cramping or pain that would be likely nonrecurring. It is possible you may have had a small kidney stone that passed prior to the scan. At this point we treated with some anti-inflammatory such as naproxen twice daily as needed for the pain and could add Robaxin muscle relaxant if it seems stiff or spasming. Add Tylenol if needed for pain. Recheck if not improved completely over the next 1 to 2 days and return sooner if you have worsening pain again or other symptoms such as fever diarrhea increased pain vomiting etc. Discharge Date/Time: 08/14/19 10:57
[2019-08-14] MEDS ORDERED: ONDANSETRON ODT 4 MG TABLET TL STA (08:54)
[2019-08-14] MEDS ORDERED: KETOROLAC 60 MG/2 ML VIAL IM STA (08:54)
[2019-08-14] MEDS ORDERED: ACETAMINOPHEN 500 MG TABLET PO STA (08:58)
[2019-08-14 09:04] LABS: BILIRUBIN,URINE NEGATIVE (NEGATIVE); GLUCOSE, URINE (UA) NEGATIVE (NEGATIVE); KETONES,URINE (UA) NEGATIVE (NEGATIVE); LEUKOCYTE ESTERASE, URINE NEGATIVE (NEGATIVE); NITRITE,URINE NEGATIVE (NEGATIVE); OCCULT BLOOD,URINE NEGATIVE (NEGATIVE); PROTEIN,URINE NEGATIVE (NEGATIVE); UROBILINOGEN,URINE 0.2 (NORMAL) E.U./dL (NORMAL)
[2019-08-14 09:06] LABS: CLARITY,URINE CLEAR (CLEAR); HCG UR QUAL NEGATIVE
--- NOTE | 2019-08-14 10:22 | CT Report ---
Reason: right flank to RLQ pain abruptly this morning Procedure Date: 08/14/2019 Accession Number: [id number] / [id number] Procedure: CT - Abdomen/Pelvis WO CPT Code: FULL RESULT: EXAM: CT ABDOMEN AND PELVIS (CT KUB) EXAM DATE: 08/14/2019 09:31 AM. CLINICAL HISTORY: Right flank to RLQ pain abruptly this morning. COMPARISONS: None. TECHNIQUE: Routine axial helical CT imaging was performed through the abdomen and pelvis without IV contrast. Reconstructions: Coronal and sagittal. In accordance with CT protocol optimization, one or more of the following dose reduction techniques were utilized for this exam: automated exposure control, adjustment of mA and/or KV based on patient size, or use of iterative reconstructive technique. FINDINGS: Lung Bases: There is a 2 mm nodule in the left lower lobe (series 3, image 4). This is most likely benign given the patient's young age. Visualized lung bases are otherwise clear. Right Kidney/Ureter: No urolithiasis or hydronephrosis. No contour deforming lesion. Left Kidney/Ureter: There is a 2 mm nonobstructing calculus in the lower pole (series 5, image 56). No other urolithiasis or hydronephrosis. No contour deforming lesion. Other Solid Organs: Liver is mildly enlarged, measuring approximately and 19.3 cm in craniocaudal dimension (series 5, image 42). The spleen, pancreas, and bilateral adrenal glands are unremarkable. Gallbladder/Bile Ducts: Unremarkable. Peritoneal Cavity: No evidence of bowel obstruction or inflammation. A normal appendix is present. Pelvic Organs: Urinary bladder is decompressed. Intrauterine device present in the uterus. Adnexal structures are unremarkable by noncontrast CT. There is no pelvic adenopathy or free fluid. Vasculature: Abdominal aorta is normal in caliber. There appear to be small collateral vessels inferior to the spleen (series 3, image 57). Other: No upper abdominal retroperitoneal adenopathy. IMPRESSION: 1. A 2 mm nonobstructing calculus is present in the lower pole of the left kidney. No other urolithiasis or evidence for obstructive uropathy. 2. No evidence of acute infectious or inflammatory process in abdomen or pelvis. Specifically, the appendix is within normal limits. 3. Mild hepatic enlargement, which is nonspecific and could be related to patient size. However, could consider correlation with serum LFTs. [facility]
[2019-08-14 10:56] VITALS: BP 114/61
== END 2019-08-14 10:57 | disposition home or self-care (01) ==
LOC: ED 08:13
DX: R10.31 Right lower quadrant pain (principal); F17.200 Nicotine dependence, unspecified, uncomplicated
CPT/HCPCS: 74176; 81003; 81025; 96372; 99284; A9270; Q0162; 81001; 87086

== ENCOUNTER 2019-08-27 18:46 | Emergency (ER) | payer MEDICAID ==
[2019-08-27 18:52] VITALS: BP 132/91
[2019-08-27] MEDS ORDERED: SUMAtriptan 6 MG/0.5 ML VIAL SUBQ STA (18:58)
[2019-08-27] MEDS ORDERED: ONDANSETRON ODT 4 MG TABLET TL STA (18:58)
--- NOTE | 2019-08-27 19:01 | ED Physician Documentation ---
PD HPI FOCAL NEURO - Stated complaint Stated Complaint: SAM N/V - Chief complaint Chief Complaint: Neuro - History obtained from History obtained from: Patient - History of Present Illness Timing - onset: Today (33-year-old woman has a history of migraines that are occasional. In the past she is taken Imitrex with relief. She does not have any right now. Had a gradual onset moderate headache associated with nausea but no vomiting earlier today. No associated neck stiffness or fever. She also complains of bilateral ear fullness. She had a sore throat earlier which is now gone.) Review of Systems Constitutional: denies: Fever, Chills Ears: reports: Loss of hearing, Drainage/discharge Nose: denies: Rhinorrhea / runny nose, Congestion Throat: reports: Sore throat PD PAST MEDICAL HISTORY - Past Medical History Cardiovascular: None Respiratory: None Neuro: Migraines Endocrine/Autoimmune: None GI: GERD : None Psych: Depression, Anxiety, Post traumatic stress disorder Musculoskeletal: None - Past Surgical History Past Surgical History: No - Present Medications Home Medications: Ambulatory Orders Medication Instructions Recorded Confirmed busPIRone [Buspar] 10 mg PO TID #30 tablet 07/08/19 Bupropion HCl [Bupropion Xl] 300 mg PO 08/14/19 Methocarbamol [Robaxin] 500 mg PO Q6H PRN #20 tablet 08/14/19 Naltrexone HCl 50 mg PO 08/14/19 08/14/19 Naproxen 500 mg PO BID #20 tablet 08/14/19 buPROPion HCl [Bupropion HCl Sr] 100 mg PO 08/14/19 Ondansetron Odt [Zofran] 4 mg TL Q6H PRN #10 tablet 08/27/19 SUMAtriptan [Imitrex] 25 mg PO BID PRN #10 tablet 08/27/19 - Allergies Allergies/Adverse Reactions: Allergies Allergy/AdvReac Type Severity Reaction Status Date / Time acetaminophen [From [place]] Allergy Rash Verified 08/27/19 18:51 hydrocodone [From [place]] Allergy Rash Verified 08/27/19 18:51 - Social History Does the pt smoke?: Yes Smoking Status: Current every day smoker Does the pt drink ETOH?: No Does the pt have substance abuse?: No - Immunizations Immunizations are current?: Yes - POLST Patient has POLST: No PD ED PE NORMAL - Vitals Vital signs reviewed: Yes - General General: Alert and oriented X 3, No acute distress - HEENT HEENT: Pharynx benign, Other (Bilateral significant cerumen load, she declined disimpaction in the emergency department.) - Neck Neck: Supple, no meningeal sign, No bony TTP - Neuro Neuro: Alert and oriented X 3, 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 She also has bilateral cerumen but declined efforts in the emergency department at irrigation or disimpaction. She wanted some Imitrex and something for the nausea. She has no neck stiffness, sudden onset, or fever. Departure - Departure Disposition: 01 Home, Self Care Clinical Impression: Migraine Qualifiers: Migraine type: without aura Status migrainosus presence: with status migrainosus Intractability: not intractable Qualified Code(s): G43.001 - Migraine without aura, not intractable, with status migrainosus Condition: Good Record reviewed to determine appropriate education?: Yes Instructions: ED Headache Migraine, ED Wax Ear Home Removal Prescriptions: Ondansetron Odt [Zofran] 4 mg TL Q6H PRN #10 tablet PRN Reason: Nausea / Vomiting SUMAtriptan [Imitrex] 25 mg PO BID PRN #10 tablet PRN Reason: Headache Comments: Call your doctor to arrange a follow-up appointment, make the next available appointment. In the interim, return anytime if worse or if new symptoms develop. Your blood pressure was elevated today on check into the emergency department. This does not mean that you have hypertension, it is a common phenomenon to come to the emergency department and have elevated blood pressure. I recommend that you see your primary care physician within the week to have it rechecked when you are feeling better.
== END 2019-08-27 19:22 | disposition home or self-care (01) ==
LOC: ED 18:46
DX: G43.001 Migraine without aura, not intractable, with status migrainosus (principal); F17.200 Nicotine dependence, unspecified, uncomplicated
CPT/HCPCS: 96372; 99283; Q0162

== ENCOUNTER 2019-09-03 16:48 | Emergency (ER) | payer MEDICAID ==
[2019-09-03 18:55] VITALS: BP 140/83
--- NOTE | 2019-09-03 19:06 | ED Physician Documentation ---
PD HPI HEENT - Stated complaint Stated Complaint: SORE THROAT, NAUSEA, COUGH, HEADACHE - Chief complaint Chief Complaint: Heent - History obtained from History obtained from: Patient - History of Present Illness Timing - onset: How many days ago (2-3) Timing - duration: Days (2-3) Timing - details: Gradual onset Location: Nose, Throat. No: Right ear, Left ear Associated symptoms: Congestion, Cough. No: Fever Recently seen: Not recently seen - Additional information Additional information: There is a 33-year-old woman who presents with complaints of both her son and fianc just recently had a virus and she thinks that she may have the same thing and she is concerned about going to [facility]ational tomorrow and if she gets prescribe something she needs to have a drug test done and prove that she can take whatever it was that she was prescribed because there is a CPS file. Patient has been coughing felt a little bit nauseous yesterday did not vomit she been bringing up some phlegm and blowing little white mucus out of her nose. She is had some ringing in her ears but no pain. She has not felt dizzy or had any vomiting. No fever. She denies . She works doing [employer] and [employer]. Review of Systems Constitutional: denies: Fever Ears: denies: Ear pain Nose: reports: Rhinorrhea / runny nose, Congestion Throat: reports: Sore throat Respiratory: reports: Cough : denies: Dysuria, Now EGA Neurologic: denies: Near syncope PD PAST MEDICAL HISTORY - Past Medical History Cardiovascular: None Respiratory: None Neuro: Migraines Endocrine/Autoimmune: None GI: GERD : None Psych: Depression, Anxiety, Post traumatic stress disorder Musculoskeletal: None - Past Surgical History Past Surgical History: No - Present Medications Home Medications: Ambulatory Orders Medication Instructions Recorded Confirmed busPIRone [Buspar] 10 mg PO TID #30 tablet 07/08/19 Bupropion HCl [Bupropion Xl] 300 mg PO 08/14/19 Methocarbamol [Robaxin] 500 mg PO Q6H PRN #20 tablet 08/14/19 Naltrexone HCl 50 mg PO 08/14/19 08/14/19 Naproxen 500 mg PO BID #20 tablet 08/14/19 buPROPion HCl [Bupropion HCl Sr] 100 mg PO 08/14/19 Ondansetron Odt [Zofran] 4 mg TL Q6H PRN #10 tablet 08/27/19 SUMAtriptan [Imitrex] 25 mg PO BID PRN #10 tablet 08/27/19 - Allergies Allergies/Adverse Reactions: Allergies Allergy/AdvReac Type Severity Reaction Status Date / Time acetaminophen [From [place]] Allergy Rash Verified 09/03/19 17:09 hydrocodone [From [place]] Allergy Rash Verified 09/03/19 17:09 - Social History Does the pt smoke?: Yes Smoking Status: Current every day smoker Does the pt drink ETOH?: No Does the pt have substance abuse?: No - Immunizations Immunizations are current?: Yes - POLST Patient has POLST: No PD ED PE NORMAL - Vitals Vital signs reviewed: Yes - General General: Alert and oriented X 3, No acute distress, Well developed/nourished - HEENT HEENT: Atraumatic, PERRL, Ears normal, Moist mucous membranes, Pharynx benign - Neck Neck: Supple, no meningeal sign, No adenopathy, Thyroid normal - Cardiac Cardiac: RRR, No murmur - Respiratory Respiratory: No respiratory distress, Clear bilaterally Results - Vitals Vitals: Vital Signs - 24 hr 09/03/19 09/03/19 17:04 18:55 Temperature 37.0 C 36.4 C L Heart Rate 101 H 87 Respiratory 18 20 Rate Blood Pressure 130/86 H 140/83 H O2 Saturation 98 99 Oxygen O2 Source Room air PD MEDICAL DECISION MAKING - ED course Complexity details: d/w patient ED course: There is no indication the patient has a bacterial upper respiratory infection. I explained that I would not typically prescribe anything in this situation. She should take [id number] cough suppressants and ibuprofen for her discomfort and cough. And she was counseled that this could take 10 to 12 days to run its course. Departure - Departure Disposition: 01 Home, Self Care Clinical Impression: URI (upper respiratory infection) Qualifiers: URI type: unspecified URI Qualified Code(s): J06.9 - Acute upper respiratory infection, unspecified Condition: Good Instructions: ED Upper Resp Infec No Abx Tx Follow-Up: Clint Nieto PA-C [Primary Care Provider] - Comments: Take Delsym [id number] for cough. May use DayQuil or NyQuil. Ibuprofen 3 to 4 tablets every 8 hours with food to help with any discomfort. Follow-up with your primary care provider if you are not improving in 10 to 12 days.
== END 2019-09-03 19:38 | disposition home or self-care (01) ==
LOC: ED 16:48
DX: J06.9 Acute upper respiratory infection, unspecified (principal); F17.200 Nicotine dependence, unspecified, uncomplicated
CPT/HCPCS: 99282

== ENCOUNTER 2019-09-16 15:40 | Emergency (ER) | payer MEDICAID ==
--- NOTE | 2019-09-16 17:28 | ED Physician Documentation ---
History of Present Illness - Stated complaint Stated Complaint: SAM, N/V, EYE PX - Chief complaint Chief Complaint: Neuro - Additonal information Additional information: This is a 33-year-old female with history of migraine who presents with a headache since this morning. Patient states that began gradually and is now a sharp pain behind her right frontal head, it has gradually worsened throughout the day. She took some ibuprofen but this did not help. She typically will try some sumatriptan but she was unable to try this today. It feels like her typical migraine. She has had some photophobia and nausea, no vomiting. No weakness or numbness. No head trauma. 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 : None HEENT: None Psych: Depression, Anxiety, Post traumatic stress disorder Musculoskeletal: None Derm: None - Past Surgical History Past Surgical History: No - Present Medications Home Medications: Ambulatory Orders Medication Instructions Recorded Confirmed busPIRone [Buspar] 10 mg PO TID #30 tablet 07/08/19 Bupropion HCl [Bupropion Xl] 300 mg PO 08/14/19 Methocarbamol [Robaxin] 500 mg PO Q6H PRN #20 tablet 08/14/19 Naltrexone HCl 50 mg PO 08/14/19 08/14/19 Naproxen 500 mg PO BID #20 tablet 08/14/19 buPROPion HCl [Bupropion HCl Sr] 100 mg PO 08/14/19 Ondansetron Odt [Zofran] 4 mg TL Q6H PRN #10 tablet 08/27/19 SUMAtriptan [Imitrex] 25 mg PO BID PRN #10 tablet 08/27/19 - Allergies Allergies/Adverse Reactions: Allergies Allergy/AdvReac Type Severity Reaction Status Date / Time acetaminophen [From [place]] Allergy Rash Verified 09/16/19 15:48 hydrocodone [From [place]] Allergy Rash Verified 09/16/19 15:48 - Social History Does the pt smoke?: Yes Smoking Status: Current every day smoker Does the pt drink ETOH?: No Does the pt have substance abuse?: No - Immunizations Immunizations are current?: Yes - POLST Patient has POLST: No PD ED PE NORMAL - Vitals Vital signs reviewed: Yes - General General: Alert and oriented X 3 - HEENT HEENT: PERRL - Neck Neck: Supple, no meningeal sign - Cardiac Cardiac: RRR, No murmur - Respiratory Respiratory: No respiratory distress, Clear bilaterally - Abdomen Abdomen: Soft, Non tender, Non distended - Derm Derm: Warm and dry - Extremities Extremities: No deformity - Neuro Neuro: Alert and oriented X 3, 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 Neuro exam normal. Eyes appear normal. She has no red flag symptoms to suggest infectious process, hemorrhage, or more nefarious pathology. IV was inserted and migraine cocktail given with very good effect. Pt was feeling well and was discharged home with return precautions and PCP follow up. Departure - Departure Disposition: 01 Home, Self Care Clinical Impression: Headache Qualifiers: Headache type: unspecified Headache chronicity pattern: acute headache Intractability: not intractable Qualified Code(s): R51 - Headache Condition: Good Instructions: ED Cephalgia Unspecified Follow-Up: Clint Nieto PA-C [Primary Care Provider] - Comments: Return to the emergency department if you are having severe headache or other new concerning symptoms such as weakness or numbness. Discharge Date/Time: 09/16/19 19:33
[2019-09-16] MEDS ORDERED: diphenhydrAMINE INJ 50 MG/ML VIAL IVP STA (17:43)
[2019-09-16] MEDS ORDERED: METOCLOPRAMIDE 10 MG/2 ML VIAL IVP STA (17:43)
[2019-09-16] MEDS ORDERED: LACTATED RINGERS 1,000 ML IV STA (17:43)
[2019-09-16] MEDS ORDERED: KETOROLAC 30 MG/ML VIAL IVP STA (17:43)
[2019-09-16] MEDS ORDERED: ACETAMINOPHEN 325 MG TABLET PO STA (17:44)
[2019-09-16 19:03] VITALS: BP 117/76
== END 2019-09-16 19:33 | disposition home or self-care (01) ==
LOC: ED 15:40
DX: G43.909 Migraine, unspecified, not intractable, without status migrainosus (principal); F17.200 Nicotine dependence, unspecified, uncomplicated
CPT/HCPCS: 96361; 96374; 96375; 99283; A9270; J1200; J2765; J7120

== ENCOUNTER 2019-10-24 17:26 | Emergency (ER) | payer MEDICAID ==
--- NOTE | 2019-10-24 18:59 | ED Physician Documentation ---
History of Present Illness - Stated complaint Stated Complaint: R EAR PAIN - Chief complaint Chief Complaint: Heent - History obtained from History obtained from: Patient - History of Present Illness Timing: How many days ago (2) Pain level max: 5 Pain level now: 5 Improved by: nothing Worsened by: nothing - Additonal information Additional information: R ear pain 2 days. States has recurrent ear infections. no recent abx. 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 : None HEENT: None Psych: Depression, Anxiety, Post traumatic stress disorder Musculoskeletal: None Derm: None - Past Surgical History Past Surgical History: No - Present Medications Home Medications: Ambulatory Orders Medication Instructions Recorded Confirmed busPIRone [Buspar] 10 mg PO TID #30 tablet 07/08/19 Bupropion HCl [Bupropion Xl] 300 mg PO 08/14/19 Methocarbamol [Robaxin] 500 mg PO Q6H PRN #20 tablet 08/14/19 Naltrexone HCl 50 mg PO 08/14/19 08/14/19 Naproxen 500 mg PO BID #20 tablet 08/14/19 buPROPion HCl [Bupropion HCl Sr] 100 mg PO 08/14/19 Ondansetron Odt [Zofran] 4 mg TL Q6H PRN #10 tablet 08/27/19 SUMAtriptan [Imitrex] 25 mg PO BID PRN #10 tablet 08/27/19 Amox/Clav 875/125 [Augmentin] 1 each PO Q12H #20 tablet 10/24/19 - Allergies Allergies/Adverse Reactions: Allergies Allergy/AdvReac Type Severity Reaction Status Date / Time acetaminophen [From [place]] Allergy Rash Verified 10/24/19 17:30 hydrocodone [From [place]] Allergy Rash Verified 10/24/19 17:30 - Social History Does the pt smoke?: Yes Smoking Status: Current every day smoker Does the pt drink ETOH?: No Does the pt have substance abuse?: No - Immunizations Immunizations are current?: Yes - POLST Patient has POLST: No PD ED PE NORMAL - Vitals Vital signs reviewed: Yes - General General: Alert and oriented X 3, No acute distress, Well developed/nourished - HEENT HEENT: Moist mucous membranes, Pharynx benign, Other (R TM is erythematous, dull, bulging with loss of landmarks. Purulent fluid present. Left TM is normal) - Neck Neck: Supple, no meningeal sign - Cardiac Cardiac: RRR - Respiratory Respiratory: No respiratory distress, Clear bilaterally - Derm Derm: Warm and dry - Neuro Neuro: Alert and oriented X 3 - Psych Psych: Normal mood, Normal affect Results - Vitals Vitals: Vital Signs - 24 hr 10/24/19 10/24/19 17:30 19:12 Temperature 36.8 C 36.9 C Heart Rate 89 82 Respiratory 18 16 Rate Blood Pressure 111/65 118/80 O2 Saturation 98 96 Oxygen O2 Source Room air PD MEDICAL DECISION MAKING - ED course Complexity details: considered differential, d/w patient ED course: Patient appears to have an otitis media. Will place on antibiotics for this. She is well-appearing, nontoxic. Afebrile. No mastoid tenderness. Patient counseled regarding signs and symptoms for which I believe and urgent re- evaluation would be necessary. Patient with good understanding of and agreement to plan and is comfortable going home at this time This document was made in part using voice recognition software. While efforts are made to proofread this document, sound alike and grammatical errors may occur. Departure - Departure Disposition: 01 Home, Self Care Clinical Impression: Right otitis media Qualifiers: Otitis media type: suppurative Chronicity: acute Recurrence: non-recurrent Spontaneous tympanic membrane rupture: without spontaneous rupture Qualified Code(s): H66.001 - Acute suppurative otitis media without spontaneous rupture of ear drum, right ear Condition: Good Instructions: ED Otitis Media Acute Adult Follow-Up: Clint Nieto PA-C [Primary Care Provider] - Within 1 week Prescriptions: Amox/Clav 875/125 [Augmentin] 1 each PO Q12H #20 tablet Comments: Take all antibiotics until gone. Return if you worsen. Follow-up with your doctor for further care. Discharge Date/Time: 10/24/19 19:14
[2019-10-24 19:12] VITALS: BP 118/80
== END 2019-10-24 19:14 | disposition home or self-care (01) ==
LOC: ED 17:26
DX: H66.001 Acute suppurative otitis media without spontaneous rupture of ear drum, right ear (principal); F17.200 Nicotine dependence, unspecified, uncomplicated
CPT/HCPCS: 99282; 99284

== ENCOUNTER 2019-10-31 00:34 | Emergency (ER) | payer MEDICAID ==
--- NOTE | 2019-10-31 02:37 | ED Physician Documentation ---
PD HPI HEENT - Stated complaint Stated Complaint: R EAR PX - Chief complaint Chief Complaint: Heent - History obtained from History obtained from: Patient - History of Present Illness Timing - onset: How many days ago (few days ago) Timing - details: Gradual onset Location: Right ear Improves: Nothing Associated symptoms: No: Fever Recently seen: Emergency Dept - Additional information Additional information: right ear pain x few days. 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 Psych: Depression, Anxiety, Post traumatic stress disorder Musculoskeletal: None Derm: None Other Past Medical History: Ear infections - Past Surgical History Past Surgical History: No - Present Medications Home Medications: Ambulatory Orders Medication Instructions Recorded Confirmed busPIRone [Buspar] 10 mg PO TID #30 tablet 07/08/19 Bupropion HCl [Bupropion Xl] 300 mg PO 08/14/19 Naltrexone HCl 50 mg PO 08/14/19 08/14/19 Naproxen 500 mg PO BID #20 tablet 08/14/19 buPROPion HCl [Bupropion HCl Sr] 100 mg PO 08/14/19 methocarbamoL [Robaxin] 500 mg PO Q6H PRN #20 tablet 08/14/19 Ondansetron Odt [Zofran] 4 mg TL Q6H PRN #10 tablet 08/27/19 SUMAtriptan [Imitrex] 25 mg PO BID PRN #10 tablet 08/27/19 Amox/Clav 875/125 [Augmentin] 1 each PO Q12H #20 tablet 10/24/19 Azithromycin [Zithromax] 250 mg PO DAILY #4 tablet 10/31/19 - Allergies Allergies/Adverse Reactions: Allergies Allergy/AdvReac Type Severity Reaction Status Date / Time acetaminophen [From [place]] Allergy Rash Verified 10/24/19 17:30 hydrocodone [From [place]] Allergy Rash Verified 10/24/19 17:30 - Social History Does the pt smoke?: Yes Smoking Status: Current every day smoker Does the pt drink ETOH?: No Does the pt have substance abuse?: No - Immunizations Immunizations are current?: Yes - POLST Patient has POLST: No PD ED PE NORMAL - Vitals Vital signs reviewed: Yes - General General: Alert and oriented X 3, No acute distress, Well developed/nourished - HEENT HEENT: Moist mucous membranes, Pharynx benign - Neck Neck: Supple, no meningeal sign PD ED PE EXPANDED - HEENT HEENT: R TM red, Other (right external auditory canal with moderate edema, mild erythema) Results - Vitals Vitals: Oxygen O2 Source Room air PD MEDICAL DECISION MAKING - ED course Complexity details: reviewed old records, considered differential, d/w patient Departure - Departure Disposition: 01 Home, Self Care Clinical Impression: Right otitis media Qualifiers: Otitis media type: suppurative Chronicity: acute Recurrence: not specified as recurrent Spontaneous tympanic membrane rupture: without spontaneous rupture Qualified Code(s): H66.001 - Acute suppurative otitis media without spontaneous rupture of ear drum, right ear Otitis externa Qualifiers: Otitis externa type: swimmer's ear Chronicity: acute Laterality: right Qualified Code(s): H60.331 - Swimmer's ear, right ear Condition: Good Instructions: ED Otitis Media Acute Adult, ED Otitis Externa Follow-Up: Clint Nieto PA-C [Primary Care Provider] - Within 1 week Prescriptions: Azithromycin [Zithromax] 250 mg PO DAILY #4 tablet Comments: Stop the antibiotic that was prescribed on your last visit (augmentin (amox/clav)), and start the azithromycin as prescribed tonight. Also, use the antibiotic drops provided as follows: 3-4 drops in right ear three times per day for one week Discharge Date/Time: 10/31/19 03:18
[2019-10-31] MEDS ORDERED: AZITHROMYCIN 250 MG TABLET PO STA (02:56)
[2019-10-31] MEDS ORDERED: NEOMYCIN/POLYMYX/HC OTIC DROPS RIGHTEAR STA (02:56)
[2019-10-31] MEDS ORDERED: IBUPROFEN 600 MG TABLET PO STA (02:59)
[2019-10-31 03:13] VITALS: BP 104/74
== END 2019-10-31 03:18 | disposition home or self-care (01) ==
LOC: ED 00:34
DX: H66.001 Acute suppurative otitis media without spontaneous rupture of ear drum, right ear (principal); H60.331 Swimmer's ear, right ear; F17.200 Nicotine dependence, unspecified, uncomplicated
CPT/HCPCS: 99282; 99283; A9270